=== PATIENT | female | born 1965 | race Caucasian/White ===

== ENCOUNTER 2016-11-29 09:08 | Emergency (ER) | payer OTHER ==
[~2016-11-29] VITALS: Ht 170.2 cm; Wt 123.6 kg
[~2016-11-29 09:08] MED LIST: ABILIFY2 MG PO; ABILIFY5 MG PO; ADDERALL30 MG PO; ADVAIR 250/501 DISK IH; ALEVE220 MG PO; AUGMENTIN875 MG PO; CEFTIN500 MG PO; CELEBREX200 MG PO; CELEBREX50 MG PO; CELEXA10 MG PO; CLONAZEPAM1 MG PO; COMBIVENT RESPIM4 GM IH; CYMBALTA PO; CYMBALTA30 MG PO; CYMBALTA60 MG PO; DILAUDID2 MG PO; ESKALITH300 MG PO; FEOSOL325 MG PO; KLONOPIN0.5 MG PO; KLONOPIN1 MG PO; KLONOPIN2 MG PO; LISINOPRIL20 MG PO; LISINOPRIL40 MG PO; LORATADINE10 M2 PO; LORTAB 5-325 M1 EACH PO; MELOXICAM15 MG PO; OMEPRAZOLE40 M1 PO; OXYCODONE HCL5 MG PO; OXYCODONE15 MG PO; OXYCONTIN20 MG PO; PERCOCET 5/31 TABLET PO; PREDNISONE10 MG PO; PREDNISONE20 MG PO; PRINIVIL20 MG PO; PROAIR HFA8.5 GM IH; PROVENTIL,2.5 MG/0.5 IH; TAMIFLU75 MG PO; TRAMADOL HCL50 MG; TRAZAMINE CONVE50 MG PO; TYLENOL WITH C1 EACH PO; XARELTO10 MG PO
[2016-11-29] MEDS ORDERED: LISINOPRIL10 MG PO (11:45)
[2016-11-29] MEDS ORDERED: MOTRIN800 MG PO (12:56)
[2016-11-29] MEDS ORDERED: ULTRACET1 TABLET PO (12:56)
[2016-11-29 13:50] VITALS: BP 119/92
== END 2016-11-29 14:00 | disposition home or self-care (01) ==
LOC: EME 09:08
DX: S80.01XA Contusion of right knee, initial encounter (principal); S83.401A Sprain of unspecified collateral ligament of right knee, initial encounter; S96.911A Strain of unspecified muscle and tendon at ankle and foot level, right foot, initial encounter; W00.0XXA Fall on same level due to ice and snow, initial encounter; I10 Essential (primary) hypertension; J44.9 Chronic obstructive pulmonary disease, unspecified; F17.200 Nicotine dependence, unspecified, uncomplicated
CPT/HCPCS: 73564; 73630; 99281; 99284

== ENCOUNTER 2017-10-08 08:19 | Emergency (ER) | payer OTHER ==
[~2017-10-08] VITALS: Ht 170.2 cm; Wt 117.5 kg
[~2017-10-08 08:19] MED LIST changes: +LISINOPRIL10 MG PO; +MOTRIN800 MG PO; +ULTRACET1 TABLET PO
[2017-10-08 09:30] LABS: HEMATOCRIT 39.7 % (36.0-46.0); MCH 29.3 PG (29.0-34.0); MCHC 32.2 G/DL (30.0-36.0); MCV 90.8 FL (83-99); MEAN PLAT.VOLUME 8.4 uM^3 (9.5-12.4); PLATELET COUNT 267 K/uL (156-360); RBC DIS.WIDTH-CV 14.6 % (11.8-14.6); RBC DIS.WIDTH-SD 49.1 % (39-53); RED BLOOD COUNT 4.37 M/uL (3.80-5.20); WHITE BLOOD COUNT 10.6 K/uL (4.1-10.2)
[2017-10-08 09:42] LABS: CHLORIDE 105 mEq/L (99-109); POTASSIUM 4.2 mEq/L (3.7-5.4); SODIUM 137 mEq/L (136-147)
[2017-10-08 09:44] LABS: GLUCOSE 109 mg/dL (70-99)
[2017-10-08 09:45] LABS: ANION GAP 7 MEQ/L (2-14)
[2017-10-08 09:46] LABS: TOTAL BILIRUBIN 0.3 mg/dL (0.0-1.0)
[2017-10-08 09:47] LABS: ALKALINE PHOSPHATASE 77 IU/L (3-129)
[2017-10-08 09:48] LABS: GFR ESTIMATE (CALCULATED) > 59 mL/min/
[2017-10-08 09:49] LABS: UREA NITROGEN (BUN) 11 mg/dL (9-23)
[2017-10-08 09:52] LABS: TROP-I INTERPRETATION NEGATIVE; TROPONIN-I < 0.01 ng/mL (0.0-0.30)
[2017-10-08] MEDS ORDERED: DELTASONE20 M1 PO (10:49)
[2017-10-08] MEDS ORDERED: PROVENTIL,2.5 MG/3 M IH ×2 (10:49→11:13)
[2017-10-08] MEDS ORDERED: FLONASE16 G1 BOTH NARES (11:27)
[2017-10-08 12:10] VITALS: BP 104/62
== END 2017-10-08 12:11 | disposition home or self-care (01) ==
LOC: EME 08:19
PROVIDERS: Nurse Practitioner Family
DX: J44.1 Chronic obstructive pulmonary disease with (acute) exacerbation (principal); G47.30 Sleep apnea, unspecified; F17.200 Nicotine dependence, unspecified, uncomplicated; I10 Essential (primary) hypertension; F41.9 Anxiety disorder, unspecified; F32.9 Major depressive disorder, single episode, unspecified; M19.90 Unspecified osteoarthritis, unspecified site; Z96.652 Presence of left artificial knee joint; Z87.01 Personal history of pneumonia (recurrent)
CPT/HCPCS: 71020; 80053; 84484; 85027; 93005; 94640; 99281; 99284; J7512; J7644

== ENCOUNTER 2017-10-21 02:21 | Emergency (ER) | payer OTHER ==
[~2017-10-21] VITALS: Ht 170.2 cm; Wt 123.4 kg
[~2017-10-21 02:21] MED LIST changes: +DELTASONE20 M1 PO; +FLONASE16 G1 BOTH NARES; +PROVENTIL,2.5 MG/3 M IH
[2017-10-21 03:03] LABS: HEMATOCRIT 35.9 % (36.0-46.0); MCH 29.6 PG (29.0-34.0); MCV 92.3 FL (83-99); MEAN PLAT.VOLUME 8.3 uM^3 (9.5-12.4); PLATELET COUNT 315 K/uL (156-360); RBC DIS.WIDTH-CV 15.2 % (11.8-14.6); RBC DIS.WIDTH-SD 51.1 % (39-53); RED BLOOD COUNT 3.89 M/uL (3.80-5.20); WHITE BLOOD COUNT 13.3 K/uL (4.1-10.2)
[2017-10-21 03:17] LABS: CHLORIDE 105 mEq/L (99-109); POTASSIUM 4.2 mEq/L (3.7-5.4); SODIUM 136 mEq/L (136-147)
[2017-10-21 03:19] LABS: GLUCOSE 103 mg/dL (70-99)
[2017-10-21 03:21] LABS: ANION GAP 6 MEQ/L (2-14); TOTAL BILIRUBIN 0.3 mg/dL (0.0-1.0)
[2017-10-21 03:23] LABS: ALKALINE PHOSPHATASE 68 IU/L (3-129); GFR ESTIMATE (CALCULATED) > 59 mL/min/
[2017-10-21 03:24] LABS: UREA NITROGEN (BUN) 13 mg/dL (9-23)
[2017-10-21 04:53] VITALS: BP 114/80
== END 2017-10-21 04:54 | disposition home or self-care (01) ==
LOC: EME → EDBD 02:21 → EME 02:21
PROVIDERS: Physician Assistant
DX: R60.0 Localized edema (principal); I10 Essential (primary) hypertension; J44.9 Chronic obstructive pulmonary disease, unspecified; M19.90 Unspecified osteoarthritis, unspecified site; G47.30 Sleep apnea, unspecified; F41.9 Anxiety disorder, unspecified; F32.9 Major depressive disorder, single episode, unspecified; F17.200 Nicotine dependence, unspecified, uncomplicated; Z82.49 Family history of ischemic heart disease and other diseases of the circulatory system; Z90.49 Acquired absence of other specified parts of digestive tract; Z90.710 Acquired absence of both cervix and uterus; Z96.652 Presence of left artificial knee joint
CPT/HCPCS: 80053; 85027; 93970; 99281; 99284

== ENCOUNTER 2017-10-30 02:29 | Emergency (ER) | payer OTHER ==
[~2017-10-30] VITALS: Ht 170.2 cm; Wt 124.6 kg
[2017-10-30 03:11] LABS: HEMATOCRIT 37.8 % (36.0-46.0); MCH 29.4 PG (29.0-34.0); MCHC 32.3 G/DL (30.0-36.0); MCV 91.1 FL (83-99); MEAN PLAT.VOLUME 8.4 uM^3 (9.5-12.4); PLATELET COUNT 275 K/uL (156-360); RBC DIS.WIDTH-CV 15.3 % (11.8-14.6); RBC DIS.WIDTH-SD 51.2 % (39-53); RED BLOOD COUNT 4.15 M/uL (3.80-5.20)
[2017-10-30 03:24] LABS: CHLORIDE 106 mEq/L (99-109); POTASSIUM 3.9 mEq/L (3.7-5.4); SODIUM 138 mEq/L (136-147)
[2017-10-30 03:26] LABS: GLUCOSE 115 mg/dL (70-99)
[2017-10-30 03:27] LABS: ANION GAP 7 MEQ/L (2-14)
[2017-10-30 03:28] LABS: TOTAL BILIRUBIN 0.4 mg/dL (0.0-1.0)
[2017-10-30 03:29] LABS: ALKALINE PHOSPHATASE 81 IU/L (3-129)
[2017-10-30 03:30] LABS: GFR ESTIMATE (CALCULATED) > 59 mL/min/
[2017-10-30 03:31] LABS: UREA NITROGEN (BUN) 9 mg/dL (9-23)
[2017-10-30 04:44] VITALS: BP 128/76
== END 2017-10-30 04:45 | disposition home or self-care (01) ==
LOC: EXP 02:29 → EME 02:29 → EXP 04:45
DX: R60.0 Localized edema (principal); I73.9 Peripheral vascular disease, unspecified; J44.9 Chronic obstructive pulmonary disease, unspecified; I10 Essential (primary) hypertension; F17.200 Nicotine dependence, unspecified, uncomplicated; F32.9 Major depressive disorder, single episode, unspecified; F41.9 Anxiety disorder, unspecified; Z96.652 Presence of left artificial knee joint
CPT/HCPCS: 80053; 81003; 83880; 84702; 85027; 99281; 99283

== ENCOUNTER 2017-11-04 10:46 | Inpatient (IN) | payer OTHER ==
[~2017-11-04] VITALS: Ht 170.2 cm; Wt 124.0 kg
[2017-11-04 12:51] LABS: HEMATOCRIT 37.3 % (36.0-46.0); MCH 29.1 PG (29.0-34.0); MCHC 32.2 G/DL (30.0-36.0); MCV 90.5 FL (83-99); MEAN PLAT.VOLUME 8.4 uM^3 (9.5-12.4); PLATELET COUNT 282 K/uL (156-360); RBC DIS.WIDTH-CV 15.2 % (11.8-14.6); RBC DIS.WIDTH-SD 50.5 % (39-53); RED BLOOD COUNT 4.12 M/uL (3.80-5.20); WHITE BLOOD COUNT 10.4 K/uL (4.1-10.2)
[2017-11-04 13:00] LABS: CHLORIDE 104 mEq/L (99-109); POTASSIUM 3.9 mEq/L (3.7-5.4); SODIUM 138 mEq/L (136-147)
[2017-11-04 13:02] LABS: GLUCOSE 104 mg/dL (70-99)
[2017-11-04 13:03] LABS: ANION GAP 9 MEQ/L (2-14)
[2017-11-04 13:05] LABS: TOTAL BILIRUBIN 0.3 mg/dL (0.0-1.0)
[2017-11-04 13:06] LABS: ALKALINE PHOSPHATASE 86 IU/L (3-129); GFR ESTIMATE (CALCULATED) > 59 mL/min/
[2017-11-04 13:07] LABS: UREA NITROGEN (BUN) 11 mg/dL (9-23)
[2017-11-04] MEDS ORDERED: POTASSIUM CHLO10 ME4 PO (14:53)
[2017-11-04] MEDS ORDERED: RISPERIDONE1 MG PO (14:54)
[2017-11-04] MEDS ORDERED: FUROSEMIDE20 MG PO (14:54)
[2017-11-04] MEDS ORDERED: LITHIUM CARBON300 MG PO (14:54)
[2017-11-04] MEDS ORDERED: COMBIVENT RESPIM4 GM IH (14:55)
[2017-11-04 16:40] VITALS: BP 115/63
[2017-11-04 20:19] VITALS: BP 80/51
[2017-11-05 00:41] VITALS: BP 98/59
[2017-11-05 03:57] VITALS: BP 108/52
[2017-11-05 07:40] VITALS: BP 120/62
[2017-11-05 07:44] LABS: HEMATOCRIT 36.6 % (36.0-46.0); MCH 28.5 PG (29.0-34.0); MCHC 31.4 G/DL (30.0-36.0); MCV 90.8 FL (83-99); MEAN PLAT.VOLUME 8.4 uM^3 (9.5-12.4); PLATELET COUNT 285 K/uL (156-360); RBC DIS.WIDTH-CV 15.3 % (11.8-14.6); RBC DIS.WIDTH-SD 50.9 % (39-53); RED BLOOD COUNT 4.03 M/uL (3.80-5.20); WHITE BLOOD COUNT 7.2 K/uL (4.1-10.2)
[2017-11-05 08:03] LABS: ANION GAP 4 MEQ/L (2-14); CHLORIDE 107 MEQ/L (99-109); GFR ESTIMATE (CALCULATED) 50 mL/min/; GLUCOSE 83 mg/dL (70-99); SAMPLE HEMOLYSIS CHECK 0; SAMPLE ICTERIC CHECK 0; SAMPLE LIPEMIA CHECK 0; SODIUM 139 MEQ/L (136-147); UREA NITROGEN (BUN) 14 mg/dL (9-23)
[2017-11-05 08:12] LABS: POTASSIUM 4.7 MEQ/L (3.7-5.4)
[2017-11-05 10:47] VITALS: BP 103/54
[2017-11-05 15:50] VITALS: BP 119/86
[2017-11-05 18:28] LABS: METH RESISTANT S AUREUS PCR NEGATIVE (NEGATIVE)
[2017-11-05 18:32] LABS: PROBE CHECK PASS; SPECIMEN PROCESSING CONTROL PASS
[2017-11-05 20:49] VITALS: BP 128/84
[2017-11-06 00:30] VITALS: BP 110/58
[2017-11-06 06:48] LABS: HEMATOCRIT 37.6 % (36.0-46.0); MCH 28.9 PG (29.0-34.0); MCHC 31.6 G/DL (30.0-36.0); MCV 91.3 FL (83-99); MEAN PLAT.VOLUME 8.9 uM^3 (9.5-12.4); PLATELET COUNT 282 K/uL (156-360); RBC DIS.WIDTH-CV 15.3 % (11.8-14.6); RBC DIS.WIDTH-SD 51.5 % (39-53); RED BLOOD COUNT 4.12 M/uL (3.80-5.20); WHITE BLOOD COUNT 7.1 K/uL (4.1-10.2)
[2017-11-06 07:14] LABS: ANION GAP 4 MEQ/L (2-14); CHLORIDE 108 MEQ/L (99-109); GFR ESTIMATE (CALCULATED) 56 mL/min/; GLUCOSE 80 mg/dL (70-99); POTASSIUM 4.6 MEQ/L (3.7-5.4); SAMPLE HEMOLYSIS CHECK 0; SAMPLE ICTERIC CHECK 0; SAMPLE LIPEMIA CHECK 0; SODIUM 139 MEQ/L (136-147); UREA NITROGEN (BUN) 14 mg/dL (9-23)
[2017-11-06 07:50] VITALS: BP 118/57
[2017-11-06 09:20] VITALS: BP 117/68
[2017-11-06] MEDS ORDERED: KEFLEX500 MG PO (12:09)
== END 2017-11-06 13:00 | disposition home or self-care (01) | DRG 603 ==
LOC: EME 10:46 → EDOF 14:37 → ENRESERV 14:38 → 2EAST 16:32
PROVIDERS: Family Medicine; Nurse Practitioner Family
DX: L03.115 Cellulitis of right lower limb (principal); L03.116 Cellulitis of left lower limb; F31.9 Bipolar disorder, unspecified; I73.9 Peripheral vascular disease, unspecified; I87.2 Venous insufficiency (chronic) (peripheral); I10 Essential (primary) hypertension; F17.200 Nicotine dependence, unspecified, uncomplicated; E66.01 Morbid (severe) obesity due to excess calories; G47.33 Obstructive sleep apnea (adult) (pediatric); Z68.41 Body mass index [BMI] 40.0-44.9, adult; J44.9 Chronic obstructive pulmonary disease, unspecified; Z96.652 Presence of left artificial knee joint; M19.90 Unspecified osteoarthritis, unspecified site; Z90.710 Acquired absence of both cervix and uterus; Z91.19 Patient's noncompliance with other medical treatment and regimen; R60.0 Localized edema
CPT/HCPCS: 80048; 80053; 81003; 83605; 83880; 85027; 87040; 87641; 93005; 93306; 93970; 94640; 94640 76; 94799; 99202; 99281; 99285; J0690; J1650; J1885

== ENCOUNTER 2018-05-29 19:19 | Emergency (ER) | payer OTHER ==
[~2018-05-29] VITALS: Ht 170.2 cm; Wt 115.4 kg
[~2018-05-29 19:19] MED LIST changes: +FUROSEMIDE20 MG PO; +KEFLEX500 MG PO; +LITHIUM CARBON300 MG PO; +POTASSIUM CHLO10 ME4 PO; +RISPERIDONE1 MG PO
[2018-05-29 23:50] VITALS: BP 118/89
== END 2018-05-30 | disposition home or self-care (01) ==
LOC: EME 19:19
PROC: 3E0234Z Introduction of Serum, Toxoid and Vaccine into Muscle, Percutaneous Approach (ICD-10-PCS; principal; 2018-05-29)
DX: S93.401A Sprain of unspecified ligament of right ankle, initial encounter (principal); S80.212A Abrasion, left knee, initial encounter; W01.0XXA Fall on same level from slipping, tripping and stumbling without subsequent striking against object, initial encounter; Y93.01 Activity, walking, marching and hiking; Y92.481 Parking lot as the place of occurrence of the external cause; Z23 Encounter for immunization; I10 Essential (primary) hypertension; J44.9 Chronic obstructive pulmonary disease, unspecified; G47.30 Sleep apnea, unspecified; F31.9 Bipolar disorder, unspecified; F32.9 Major depressive disorder, single episode, unspecified; F41.9 Anxiety disorder, unspecified; M19.90 Unspecified osteoarthritis, unspecified site; F17.200 Nicotine dependence, unspecified, uncomplicated; Z90.49 Acquired absence of other specified parts of digestive tract; Z90.710 Acquired absence of both cervix and uterus; Z96.652 Presence of left artificial knee joint
CPT/HCPCS: 73564; 73610; 99281; 99284

== ENCOUNTER 2018-07-09 10:44 | Inpatient (IN) | payer OTHER ==
[~2018-07-09] VITALS: Ht 170.2 cm; Wt 112.1 kg
[2018-07-09 11:42] LABS: APPEARANCE CLEAR ((CLEAR)); BILIRUBIN NEGATIVE; BLOOD NEGATIVE; COLOR YELLOW ((YELLOW)); GLUCOSE (STRIP) NEGATIVE; KETONES NEGATIVE; LEUKOCYTES NEGATIVE; NITRITE NEGATIVE; PROTEIN (STRIP) NEGATIVE; SPECIFIC GRAVITY 1.008 (1.000-1.030); UCUL ADDED? NO; UROBILINOGEN 0.2 MG/DL (0.2-1.0)
[2018-07-09 11:53] LABS: AMPHETAMINE NEGATIVE (500 ng/mL); BARBITURATES NEGATIVE (200 ng/mL); BENZODIAZEPINES NEGATIVE (150 ng/mL); BUPRENORPHINE NEGATIVE (10 ng/mL); COCAINE NEGATIVE (150 ng/mL); METHADONE NEGATIVE (200 ng/mL); METHAMPHETAMINE NEGATIVE (500 ng/mL); OPIATES (MORPHINE) NEGATIVE (100 ng/mL); OXYCODONE NEGATIVE (100 ng/mL); PHENCYCLIDINE NEGATIVE (25 ng/mL); PROPOXYPHENE NEGATIVE (300 ng/mL); THC CANNABINOIDS NEGATIVE (50 ng/mL); TRICYCLIC ANTIDEPRESSANTS NEGATIVE (300 ng/mL)
[2018-07-09 12:15] LABS: BASOPHIL (%) 0.7 % (0-1); BASOPHIL COUNT 0.1 K/uL (0-0.1); EOSINOPHIL COUNT 0.2 K/uL (0-0.3); HEMATOCRIT 45.9 % (36.0-46.0); HEMOGLOBIN 14.9 G/DL (11.9-15.5); IMMATURE GRANULOCYTE (%) 0.2 % (0.0-0.7); LYMPHOCYTE (%) 23.1 % (15-42); LYMPHOCYTE COUNT 2.3 K/uL (1.0-2.8); MCH 29.9 PG (29.0-34.0); MCHC 32.5 G/DL (30.0-36.0); MCV 92.2 FL (83-99); MONOCYTE (%) 4.8 % (3-12); MONOCYTE COUNT 0.5 K/uL (0-0.8); NEUTROPHIL (%) 69.2 % (45-76); NEUTROPHIL COUNT 6.7 K/uL (1.8-6.4); PLATELET COUNT 248 K/uL (156-360); RBC DIS.WIDTH-SD 51.2 % (39-53); RED BLOOD COUNT 4.98 M/uL (3.80-5.20); WHITE BLOOD COUNT 9.7 K/uL (4.1-10.2)
[2018-07-09 12:25] LABS: ALBUMIN 3.9 g/dL (3.2-4.8); CHLORIDE 109 mEq/L (99-109); POTASSIUM 4.1 mEq/L (3.7-5.4); SODIUM 141 mEq/L (136-147)
[2018-07-09 12:28] LABS: GLUCOSE 105 mg/dL (70-99); TOTAL PROTEIN 6.6 g/dL (6.4-8.3)
[2018-07-09 12:30] LABS: TOTAL BILIRUBIN 0.4 mg/dL (0.0-1.0)
[2018-07-09 12:31] LABS: SERUM ETHYL ALCOHOL < 10 mg/dL
[2018-07-09 12:32] LABS: ALKALINE PHOSPHATASE 92 IU/L (3-129); CREATININE 0.9 mg/dL (0.6-1.3); GFR ESTIMATE (CALCULATED) > 59 mL/min/
[2018-07-09 12:33] LABS: AST (GOT) 16 IU/L (2-34)
[2018-07-09 12:34] LABS: UREA NITROGEN (BUN) 8 mg/dL (9-23)
[2018-07-09 12:35] LABS: ACETAMINOPHEN (TYLENOL) < 10 mcg/mL (10-30); ALT (GPT) 21 IU/L (3-49); SALICYLATE < 5.0 MG/DL (15-30)
[2018-07-09 12:42] LABS: QUANTITATIVE HCG < 4.0 MIU/ML
[2018-07-09 15:00] VITALS: BP 154/73
[2018-07-09 16:28] VITALS: BP 128/87
[2018-07-10 08:06] VITALS: BP 136/83
[2018-07-10 15:59] VITALS: BP 103/61
[2018-07-11 07:33] VITALS: BP 90/51
[2018-07-11] MEDS ORDERED: ARIPIPRAZOLE5 MG PO (12:26)
== END 2018-07-11 13:05 | disposition home or self-care (01) | DRG 885 ==
LOC: EME 10:44 → 1WEST 12:37 → EDOF 12:37 → ENRESERV 13:23 → 1WEST 14:29
PROVIDERS: Emergency Medicine
DX: F31.9 Bipolar disorder, unspecified (principal); R45.851 Suicidal ideations; F60.3 Borderline personality disorder; J43.9 Emphysema, unspecified; I10 Essential (primary) hypertension; F12.90 Cannabis use, unspecified, uncomplicated; F17.200 Nicotine dependence, unspecified, uncomplicated; Z96.652 Presence of left artificial knee joint; E66.3 Overweight; Z68.38 Body mass index [BMI] 38.0-38.9, adult
CPT/HCPCS: 80053; 80178; 81003; 84702; 85025; 90839; 94799; 99281; 99284; G0480